=== PATIENT | male | born 1970 | race Caucasian/White ===

== ENCOUNTER 2019-03-07 21:35 | Observation (INO) | payer OTHER, SELFPAY ==
[2019-03-07 21:36] VITALS: BP 154/98; PULSE 75; RESP 20; TEMP 36.7; O2SAT 98; BMI 27.1
--- NOTE | 2019-03-07 21:41 | XR_ITS ---
XR chest 2V HISTORY: Chest pain ITS.REASON: CP ORDERING PHYSICIAN: Jose Felton MD PATIENT AGE: 48 years COMPARISON: None FINDINGS: The cardiomediastinal silhouette and pulmonary vascularity are within normal limits. The lungs are clear without infiltrates, suspicious nodules, or pleural effusions. No acute bony abnormalities. IMPRESSION: Negative chest, no acute finding
[2019-03-07 22:05] LABS: Basophils % 0.5 % (0.1-2.0); Eosinophils # 0.2 K/mm3 (0.0-0.4); Eosinophils % 2.7 % (0.1-12.0); Hematocrit 43.9 % (42.0-52.0); Hemoglobin 15.3 g/dL (14.1-18.0); Lymphocytes # 2.9 K/mm3 (0.7-4.5); Lymphocytes % 47.6 % (10-50); Mean Corpuscular HGB Conc 34.9 g/dL (31.8-35.4); Mean Corpuscular Hemoglobin 29.5 pg (27.0-31.2); Mean Corpuscular Volume 84.7 fl (80-94); Mean Platelet Volume 7.1 fl (7.4-10.4); Monocytes # 0.3 K/mm3 (0.1-1.0); Monocytes % 5.7 % (1.7-9.3); Neutrophils # 2.6 K/mm3 (1.8-7.8); Neutrophils % 43.5 % (37.0-80.0); Platelet Count 221 K/mm3 (142-424); Red Blood Count 5.18 M/mm3 (4.60-6.20); Red Cell Distribution Width 13.3 % (11.5-17.5)
--- NOTE | 2019-03-07 22:08 | PC.NURSE ---
Pt states he is having no pain at this time
--- NOTE | 2019-03-07 22:17 | HMH.EDCP ---
ED Disposition Clinical Impression: Unstable angina pectoris, LBBB (left bundle branch block) Disposition: Admitted as Observation Condition on Discharge: Good Referrals: Provider,Referral, [Primary Care Provider] - - Critical Care Critical Care Time: No Attestation: On 03/07/19, the high probability of a clinically significant, sudden or life threatening deterioration of the following system(s) required my full and direct attention, intervention and personal management. The time I documented below is in addition to time spent performing reported procedures but includes the following listed in this critical care notation. Medical Decision Making - Medical Records Medical records reviewed: Yes: I reviewed the patient's medical records. - Ehsan Inquiry Pt receiving controlled substance: No Vital Signs: 03/07/19 21:36 Temperature 98.1 F Temperature Source Oral Pulse Rate [Right] 75 Respiratory Rate 20 Blood Pressure [Right Arm] 154/98 H Blood Pressure Mean [Right Arm] 116 02 Sat by Pulse Oximetry 98 - Lab Data Lab results reviewed: Yes: I reviewed the patient's lab results. Lab Results 03/07/19 21:55: WBC 6.0, RBC 5.18, Hgb 15.3, Hct 43.9, MCV 84.7, MCH 29.5, MCHC 34.9, RDW 13.3, Plt Count 221, MPV 7.1 L, Neut % (Auto) 43.5, Lymph % (Auto) 47.6, [place] % (Auto) 5.7, Eos % (Auto) 2.7, Baso % (Auto) 0.5, Neut # (Auto) 2.6, Lymph # (Auto) 2.9, [place] # (Auto) 0.3, Eos # (Auto) 0.2, Baso # (Auto) 0.0 03/07/19 21:55: Sodium 142, Potassium 4.0, Chloride 107, Carbon Dioxide 24, Anion Gap 15.0, BUN 25 H, Creatinine 1.10, Estimated Creat Clear 103, Estimated GFR 71, Est GFR ( Amer) 86, Glucose 99, Calcium 8.8, Troponin I < 0.02 Result diagrams: 03/07/19 21:55 03/07/19 21:55 Orders (Tests/Meds): ED MEDICATIONS Generic Name Dose Route Start Last Admin Trade Name Freq PRN Reason Stop Dose Admin Sodium Chloride 1,000 mls @ 999 mls/hr 03/07/19 21:45 03/07/19 22:00 Sod Chlor 0.9% 1000ml Bag IV 03/07/19 22:45 999 mls/hr .Q1H1M AIDA Administration Discontinued Medications Generic Name Dose Route Start Last Admin Trade Name Kishan PRN Reason Stop Dose Admin Aspirin 324 mg 03/07/19 21:41 03/07/19 21:59 Aspirin 81mg Chewable Tablet PO 03/07/19 21:42 324 mg ONCE ONE Administration Morphine Sulfate 2 mg 03/07/19 22:36 Morphine 2mg/Ml Syringe IV 03/07/19 22:37 ONCE ONE Nitroglycerin 1 gm 03/07/19 21:41 03/07/19 22:00 Nitroglycerin 1 Inch Oint Udp TD 03/07/19 21:42 1 gm ONCE ONE Administration ORDERS Category Date Time Status XR chest 2V Stat Exams 03/07/19 21:41 Taken 12-lead EKG Request [ECG Request by /Dilan] Stat Y 03/07/19 21:41 Ordered - Radiology Data #1 Image(s): Chest Image Reviewed: Yes I reviewed the patient's radiology image Preliminary Findings: Normal/NAD - ECG Data Tracing #1 Normal Sinus Rhythm: Yes Conduction abnormalities present: LBBB - Physician Consults Physician Consulted: trisha Reason -: Pt condition Chest Pain HPI - General Chief Complaint: Chest Pain Stated Complaint: Chest pain Time Seen by Provider: 03/07/19 21:40 Mode of Arrival: Ambulatory Source of Information: Patient, Spouse, Medical Record Limitations: No Limitations Description of Symptoms (Recalled from ER Triage Doc. by RN): Pt sent here by trisha to be evaluated for CP. Pt states he is having pain in his chest radiating to his neck and back. - History of Present Illness HPI narrative: pt with chest pain which has been recurrent since tuesday - seen at another hospital and had overnight admit and then d/c - has persistant pain at rest - no known heart disease but has lbbb- MD complaint: chest pain indicative of cardiac Onset (ago): day(s) Duration: intermittent Activity at onset: during rest Pain location: left chest Severity: moderate Quality: tightness Pain radiation: neck Relieving factors: nitroglycerin Treatments prior
[2019-03-07 22:22] LABS: Blood Urea Nitrogen 25 mg/dL (7-18); Calcium 8.8 mg/dL (8.5-10.1); Carbon Dioxide 24 mmol/L (21.0-32.0); Chloride 107 mmol/L (98-107); Creatinine Clearance Estimated 103 mL/min (50-200); Estimated Glomerular Filt Rate 71 ml/min (>60); GFR (African American) 86 ML/MIN (>60); Glucose 99 mg/dL (74-106); Sodium 142 mmol/L (136-145); Troponin I < 0.02 ng/ml (0.00-0.06)
--- NOTE | 2019-03-07 22:40 | PC.NURSE ---
Pt states he is having a 2/10 pain in his chest, MD notified
[2019-03-07 22:51] VITALS: BP 158/53; PULSE 64; RESP 20; O2SAT 94
[2019-03-07 22:52] VITALS: BP 140/80; PULSE 62; RESP 20; TEMP 37; O2SAT 98
--- NOTE | 2019-03-07 22:53 | PC.NURSE ---
Addendum entered by Graciela Chamorro RN 03/07/19 22:53: After administration of morphine Original Note: Pt states he is having 0/10 pain at this time
[2019-03-07 22:55] VITALS: BP 137/83; PULSE 68; RESP 22; TEMP 36.9; O2SAT 99; BMI 25.7
--- NOTE | 2019-03-07 23:02 | PC.NURSE ---
LATE ENTRY; @ [id number] ARRIVED TO FLOOR, PER W/C, FROM ED
[2019-03-07 23:58] VITALS: PULSE 59
[2019-03-08] VITALS (14 sets, daily range): BP systolic 102–122; BP diastolic 57–77; PULSE 54–67; RESP 16–18; TEMP 36.6–36.7; O2SAT 96–99; BMI 25.6
--- NOTE | 2019-03-08 | IR_ITS ---
CARDIAC CATHETERIZATION DATE OF CATHETERIZATION:03/08/2019 12:08 PM PROCEDURES: 1. Left heart catheterization 2. Left ventriculogram 3. Selective coronary angiogram INDICATION FOR TEST: 1. Unstable angina 2. Left bundle-branch block Informed consent was obtained prior to the procedure. COMPLICATIONS: None ESTIMATED BLOOD LOSS: Less than 10 ml. TECHNIQUE: One percent lidocaine used to anesthetize the right anterior aspect of the wrist. The right radial artery was accessed via the Seldinger technique. A 6 Wolof sheath was placed in the right radial artery. 2.5 mg of verapamil, 800 mcg of nitroglycerin, 1mg Lidocaine and 5000 U Heparin were given through the arterial sheath. The trap catheter was also used to perform left heart catheterization, left ventriculogram and selective coronary angiogram. At the end of the procedure the sheath was removed good hemostasis was achieved using Traclet band, patient was transferred to the postop holding area in stable condition . ANGIOGRAPHIC RESULTS: 1. The left main artery normal 2. The left anterior descending artery normal 3. The circumflex artery dominant normal 4. The right coronary artery nondominant normal 5. The MYERS ventriculogram reveals normal 65% 6. The left ventricular end-diastolic pressure 10 to 15 mmHg IMPRESSION: 1. Normal coronary arteries 2. Normal ejection fraction 3. Normal to mildly elevated LVEDP PLAN: 1. Evaluation noncardiac chest pain
[2019-03-08 01:44] LABS: Troponin I < 0.02 ng/ml (0.00-0.06)
--- NOTE | 2019-03-08 05:21 | PC.NURSE ---
PT NEW ADMIT THIS SHIFT. NPO FOR KEVIN CONSULT THIS AM. COMPLAINTS OF H/A THIS AM, GIVEN TYLENOL. HAS REMAINED AT [facility]. NO COMPLAINTS OF CP. NSR ON TELEMETRY.
[2019-03-08 05:45] LABS: Basophils % 0.5 % (0.1-2.0); Eosinophils # 0.1 K/mm3 (0.0-0.4); Eosinophils % 2.8 % (0.1-12.0); Hematocrit 40.3 % (42.0-52.0); Lymphocytes % 46.5 % (10-50); Mean Corpuscular Hemoglobin 28.9 pg (27.0-31.2); Mean Corpuscular Volume 84.9 fl (80-94); Mean Platelet Volume 7.2 fl (7.4-10.4); Monocytes # 0.3 K/mm3 (0.1-1.0); Monocytes % 7.6 % (1.7-9.3); Neutrophils # 1.8 K/mm3 (1.8-7.8); Neutrophils % 42.6 % (37.0-80.0); Platelet Count 171 K/mm3 (142-424); Red Blood Count 4.75 M/mm3 (4.60-6.20); Red Cell Distribution Width 13.2 % (11.5-17.5); White Blood Count 4.2 K/mm3 (4.8-10.8)
[2019-03-08 05:48] LABS: Hemoglobin 13.8 g/dL (14.1-18.0)
[2019-03-08 05:50] LABS: Anion Gap 11.8 mEq/L (5-15); Blood Urea Nitrogen 23 mg/dL (7-18); Carbon Dioxide 26 mmol/L (21.0-32.0); Chloride 108 mmol/L (98-107); Chol/HDL Ratio 5.6 (1-3.5); Cholesterol 162 mg/dL (140-200); Creatinine Clearance Estimated 103 mL/min (50-200); Creatinine,Serum 1.04 mg/dL (0.70-1.30); Estimated Glomerular Filt Rate 76 ml/min (>60); GFR (African American) 91 ML/MIN (>60); Glucose 104 mg/dL (74-106); HDL Cholesterol 29 mg/dL (27-67); LDL Cholesterol 98 mg/dL (0-130); Potassium 3.8 mmoL/L (3.5-5.1); Sodium 142 mmol/L (136-145); Triglycerides 177 mg/dL (30-200); VLDL Cholesterol 35 mg/dL (0-40)
[2019-03-08 05:55] LABS: Troponin I < 0.02 ng/ml (0.00-0.06)
--- NOTE | 2019-03-08 06:04 | PC.NURSE ---
ALEXA FORTE, NOTIFIED OF DR. BROWN CONSULT
--- NOTE | 2019-03-08 07:23 | PC.NURSE ---
REPORT GIVEN TO Jovana EMERSON
--- NOTE | 2019-03-08 07:27 | HMH.PHAVTE ---
[facility] Pharmacy VTE Monitoring - Patient Demographics Admission date: 03/07/19 Report Date: 03/08/19 Time: 07:27 Allergies/Adverse Reactions: Patient Allergies No Known Allergies Allergy (Verified 03/07/19 21:40) Height: 1.83 m Weight: 85.757 kg Patient Problems: Current Active Problems (Updated 03/07/19 @ 22:44 by Jose Felton MD) Unstable angina pectoris (Acute) LBBB (left bundle branch block) (Acute) - VTE Risk Labs: VTE Related Lab Results Hgb 13.8 g/dL (14.1-18.0) L 03/08/19 04:50 Hct 40.3 % (42.0-52.0) L 03/08/19 04:50 Plt Count 171 K/mm3 (142-424) 03/08/19 04:50 BUN 23 mg/dL (7-18) H 03/08/19 04:50 Creatinine 1.04 mg/dL (0.70-1.30) 03/08/19 04:50 Estimated Creat Clear 103 mL/min (50-200) 03/08/19 04:50 Was VTE Risk Assessment Performed: Yes VTE Score: 0 VTE Risk Level: Very Low Risk - Prophylaxis VTE Prophylaxis Ordered?: Yes Types of VTE Prophylaxis: TEDS Knee High Location of Applied Device: Bilateral Lower Extremeties - VTE Diagnosis Confirmed Treatment or plan recommended: Continue Current Treatment
--- NOTE | 2019-03-08 08:00 | CA_ITS ---
PROCEDURE: 2-D M-mode and color Doppler study INDICATIONS FOR THE TEST: Chest pain X COPD Heart Murmur Tobacco Smoking Palpitations Fatigue Syncope Edema Hypertension Diabetes Mellitus Rheumatic Fever SOB PASCUAL Obesity Hyperlipidemia Family History HD Additional History ABN EKG PATIENT INFORMATION HEIGHT: 72 WEIGHT:200 GENDER: Male B/P:158/98 2-D/M-MODE INTERPRETATION: 2-D MEASUREMENTS OBSERVED VALUES IN CMS Right Ventricular Dimension (RVDd) 2.9 Interventricular Septum (Thickness)(IVsd) 1.1 Left Ventricular Internal Dimensions(LVIDd) 5.0 Left Ventricular Posterior Wall (Thickness)(LVPWd) .7 Aortic Root 2.8 Aortic Cusp Separation 1.9 Left Atrial Dimensions (LAD) 2.8 2D 1. Left atrium is normal size, left ventricle is normal size, there is no concentric left ventricular hypertrophy, visually estimated ejection fraction 50%, there is abnormal septal motion, endocardial surfaces are poorly visualized. 2. The right atrium is normal size, right ventricle is qualitatively mildly enlarged with normal contractility. 3. The aortic valve is minimally thickened and fibrosed. 4. The mitral and tricuspid valve leaflets are minimally thickened. 5. The pulmonic valve is poorly present. 6. There is trivial pericardial effusion noted. DOPPLER INTERROGATION: Doppler interrogation of the aortic, mitral and tricuspid valvular presence of mild mitral and tricuspid regurgitation, calculated right ventricular systolic pressure is 28 mmHg, diastolic parameters are within normal range. CONCLUSION: 1. Normal left ventricular size, visually estimated ejection fraction 50% with no regional wall motion abnormality, endocardial surfaces are poorly visualized. Diastolic parameters are within normal range. 2. Mildly enlarged right ventricle with normal contractility. 3. Mild mitral and tricuspid regurgitation, calculated right ventricular systolic pressure is 28 mmHg 4. Trivial pericardial effusion noted.
--- NOTE | 2019-03-08 08:43 | HMH.CNCARD ---
History of Present Illness Consult date: 03/08/19 Requesting physician: Jose Felton Consult reason: chest pain Chief complaint: chest pain Additional Medical History:: 1. History of knee and elbow surgery 2. Left bundle branch block by EKG, 02/2019 3. Hyperlipidemia History of present illness: 48-year-old white male with recurrent episodes of substernal chest pain radiating to the shoulder and left arm that resolves with sublingual nitroglycerin and Nitropaste. Patient recently admitted to [facility] in [facility] with normal troponins and evaluation by CT of the chest with subsequent discharge home for outpatient follow-up. Patient returned to work yesterday and had recurrent episodes of chest pain for which he contacted personal friend, Dr. Mcneal with recommendation for admission to [facility] and further evaluation. Patient had no chest pain overnight while on the Nitropaste. Unfortunately he has a tremendous headache from the Nitropaste and it was removed this morning. Troponins have returned normal overnight. He has left bundle branch block on EKG which precludes diagnostic interpretation. Patient denies hypertension, tobacco use or diabetes. His mother had bypass in her early 70s. He has recently been made aware of hyperlipidemia. He is not on any treatment. Patient relates about 2 to 3 months ago bilateral numbness in his toes for which he was given ibuprofen 800 mg 3 times daily for about 1 week. He denies any recent GERD symptoms. [facility] History Medical History: Denies:: Cancer, Diabetes Mellitus Type 1, Diabetes Mellitus Type 2, MRSA *Have you ever received a pneumonia vaccine?: No *Have you received a flu vaccine this season?: Yes Laterality Cases: Right: ACL Repair Other Surgeries: Yes: Other (ELBOW SURGERY) Amputation: No Fractures: No - *Social History Educational Level: Completed High School Smoking Status: Never smoker Alcohol Intake: never *Occupational Status:: employed Housing: house *Travel in the last 8 weeks: None - Psychiatric History Expresses thoughts of harming self/others: None Suicide Plan Description: No Plan Family Hx:: Coronary Artery Disease Meds Home Medications Medication Instructions Recorded Confirmed Type No Known Home Medications 03/07/19 03/07/19 History Allergies Allergy/AdvReac Type Severity Reaction Status Date / Time No Known Allergies Allergy Verified 03/07/19 21:40 Review of Systems - *Cardiovascular Reports chest pain, Denies shortness of breath - *Respiratory Denies cough, Denies shortness of breath - *Gastrointestinal Denies abdominal pain, Denies nausea, Denies vomiting - *Genitourinary Denies blood in urine - *Musculoskeletal Denies joint pain, Denies back pain - *Neurologic Denies seizure-like activity Exam Vital signs and Labs for Last 24 Hours: Temp Pulse Resp BP Pulse Ox 97.8 F 60 16 107/70 L 96 03/08/19 07:44 03/08/19 08:00 03/08/19 07:44 03/08/19 07:44 03/08/19 07:44 Laboratory Results - last 24 hr 03/07/19 21:55: WBC 6.0, RBC 5.18, Hgb 15.3, Hct 43.9, MCV 84.7, MCH 29.5, MCHC 34.9, RDW 13.3, Plt Count 221, MPV 7.1 L, Neut % (Auto) 43.5, Lymph % (Auto) 47.6, [place] % (Auto) 5.7, Eos % (Auto) 2.7, Baso % (Auto) 0.5, Neut # (Auto) 2.6, Lymph # (Auto) 2.9, [place] # (Auto) 0.3, Eos # (Auto) 0.2, Baso # (Auto) 0.0 03/07/19 21:55: Sodium 142, Potassium 4.0, Chloride 107, Carbon Dioxide 24, Anion Gap 15.0, BUN 25 H, Creatinine 1.10, Estimated Creat Clear 103, Estimated GFR 71, Est GFR ( Amer) 86, Glucose 99, Calcium 8.8, Troponin I < 0.02 03/08/19 01:10: Troponin I < 0.02 03/08/19 04:50: Troponin I < 0.02 03/08/19 04:50: WBC 4.2 L D, RBC 4.75, Hgb 13.8 L, Hct 40.3 L, MCV 84.9, MCH 28.9, MCHC 34.0, RDW 13.2, Plt Count 171, MPV 7.2 L, Neut % (Auto) 42.6, Lymph % (Auto) 46.5, [place] % (Auto) 7.6, Eos % (Auto) 2.8, Baso % (Auto) 0.5, Neut # (Auto) 1.8, Lymph # (Auto) 2
--- NOTE | 2019-03-08 08:47 | P.CONS_ITS ---
History of Present Illness Consult date: 03/08/19 Requesting physician: Jose Felton Consult reason: chest pain Chief complaint: chest pain Additional Medical History:: 1. History of knee and elbow surgery 2. Left bundle branch block by EKG, 02/2019 3. Hyperlipidemia History of present illness: 48-year-old white male with recurrent episodes of substernal chest pain radiating to the shoulder and left arm that resolves with sublingual nitroglycerin and Nitropaste. Patient recently admitted to [facility] in [facility] with normal troponins and evaluation by CT of the chest with subsequent discharge home for outpatient follow-up. Patient returned to work yesterday and had recurrent episodes of chest pain for which he contacted personal friend, Dr. Mcneal with recommendation for admission to [facility] and further evaluation. Patient had no chest pain overnight while on the Nitropaste. Unfortunately he has a tremendous headache from the Nitropaste and it was removed this morning. Troponins have returned normal overnight. He has left bundle branch block on EKG which precludes diagnostic interpretation. Patient denies hypertension, tobacco use or diabetes. His mother had bypass in her early 70s. He has recently been made aware of hyperlipidemia. He is not on any treatment. Patient relates about 2 to 3 months ago bilateral numbness in his toes for which he was given ibuprofen 800 mg 3 times daily for about 1 week. He denies any recent GERD symptoms. [facility] History Medical History: Denies:: Cancer, Diabetes Mellitus Type 1, Diabetes Mellitus Type 2, MRSA *Have you ever received a pneumonia vaccine?: No *Have you received a flu vaccine this season?: Yes Laterality Cases: Right: ACL Repair Other Surgeries: Yes: Other (ELBOW SURGERY) Amputation: No Fractures: No - *Social History Educational Level: Completed High School Smoking Status: Never smoker Alcohol Intake: never *Occupational Status:: employed Housing: house *Travel in the last 8 weeks: None - Psychiatric History Expresses thoughts of harming self/others: None Suicide Plan Description: No Plan Family Hx:: Coronary Artery Disease Meds Home Medications Medication Instructions Recorded Confirmed Type No Known Home Medications 03/07/19 03/07/19 History Allergies Allergy/AdvReac Type Severity Reaction Status Date / Time No Known Allergies Allergy Verified 03/07/19 21:40 Review of Systems - *Cardiovascular Reports chest pain, Denies shortness of breath - *Respiratory Denies cough, Denies shortness of breath - *Gastrointestinal Denies abdominal pain, Denies nausea, Denies vomiting - *Genitourinary Denies blood in urine - *Musculoskeletal Denies joint pain, Denies back pain - *Neurologic Denies seizure-like activity Exam Vital signs and Labs for Last 24 Hours: Temp Pulse Resp BP Pulse Ox 97.8 F 60 16 107/70 L 96 03/08/19 07:44 03/08/19 08:00 03/08/19 07:44 03/08/19 07:44 03/08/19 07:44 Laboratory Results - last 24 hr 03/07/19 21:55: WBC 6.0, RBC 5.18, Hgb 15.3, Hct 43.9, MCV 84.7, MCH 29.5, MCHC 34.9, RDW 13.3, Plt Count 221, MPV 7.1 L, Neut % (Auto) 43.5, Lymph % (Auto) 47.6, [place] % (Auto) 5.7, Eos % (Auto) 2.7, Baso % (Auto) 0.5, Neut # (Auto) 2.6, Lymph # (Auto) 2.9, [place] # (A
--- NOTE | 2019-03-08 09:23 | HMH.HP ---
*Admission Date: 03/07/19 *Chief complaint: chest pain *History of present illness: pt with new chest pain which began over the last few days - pt with admit at another hospital and was released and presented for ongoing chest pain with rad to neck and relieved with ntg - tory of knee and elbow surgery 2. Left bundle branch block by EKG, 02/2019 3. Hyperlipidemia History of present illness: 48-year-old white male with recurrent episodes of substernal chest pain radiating to the shoulder and left arm that resolves with sublingual nitroglycerin and Nitropaste. Patient recently admitted to [facility] in [facility] with normal troponins and evaluation by CT of the chest with subsequent discharge home for outpatient follow-up. Patient returned to work yesterday and had recurrent episodes of chest pain for which he contacted personal friend, Dr. Mcneal with recommendation for admission to [facility] and further evaluation. Patient had no chest pain overnight while on the Nitropaste. Unfortunately he has a tremendous headache from the Nitropaste and it was removed this morning. Troponins have returned normal overnight. He has left bundle branch block on EKG which precludes diagnostic interpretation. Patient denies hypertension, tobacco use or diabetes. His mother had bypass in her early 70s. He has recently been made aware of hyperlipidemia. He is not on any treatment. Patient relates about 2 to 3 months ago bilateral numbness in his toes for which he was given ibuprofen 800 mg 3 times daily for about 1 week. He denies any recent GERD symptoms. [facility] History I have reviewed the patient's past medical history: Yes Medical History: Denies:: Cancer, Diabetes Mellitus Type 1, Diabetes Mellitus Type 2, MRSA *Have you ever received a pneumonia vaccine?: No *Have you received a flu vaccine this season?: Yes Laterality Cases: Right: ACL Repair Other Surgeries: Yes: Other (ELBOW SURGERY) Amputation: No Fractures: No - *Social History Educational Level: Completed High School Smoking Status: Never smoker Alcohol Intake: never *Occupational Status:: employed Housing: house *Travel in the last 8 weeks: None - Psychiatric History Expresses thoughts of harming self/others: None Suicide Plan Description: No Plan Family Hx:: Coronary Artery Disease Review of Systems - Review of Systems Review of systems:: pertinent systems reviewed and negative unless documented below - Constitutional Denies fever(s) - Eyes Denies change in vision - ENT Denies sore throat - *Cardiovascular Reports chest pain, Reports radiating jaw, neck or arm pain - *Respiratory Denies cough - *Gastrointestinal Denies abdominal pain - *Musculoskeletal Denies joint pain - Integumentary/Breasts Denies rash - *Neurologic Denies seizure-like activity - Psychiatric Denies anxiety Meds Home Medications Medication Instructions Recorded Confirmed Type No Known Home Medications 03/07/19 03/07/19 History Allergies Allergy/AdvReac Type Severity Reaction Status Date / Time No Known Allergies Allergy Verified 03/07/19 21:40 Exam Vital signs and Labs for Last 24 Hours: Temp Pulse Resp BP Pulse Ox 97.8 F 60 16 107/70 L 96 03/08/19 07:44 03/08/19 08:00 03/08/19 07:44 03/08/19 07:44 03/08/19 07:44 Laboratory Results - last 24 hr 03/07/19 21:55: WBC 6.0, RBC 5.18, Hgb 15.3, Hct 43.9, MCV 84.7, MCH 29.5, MCHC 34.9, RDW 13.3, Plt Count 221, MPV 7.1 L, Neut % (Auto) 43.5, Lymph % (Auto) 47.6, [place] % (Auto) 5.7, Eos % (Auto) 2.7, Baso % (Auto) 0.5, Neut # (Auto) 2.6, Lymph # (Auto) 2.9, [place] # (Auto) 0.3, Eos # (Auto) 0.2, Baso # (Auto) 0.0 03/07/19 21:55: Sodium 142, Potassium 4.0, Chloride 107, Carbon Dioxide 24, Anion Gap 15.0, BUN 25 H, Creatinine 1.10, Estimated Creat Clear 103, Estimated GFR 71, Est GFR ( Amer) 86, Glucose 99, Calcium 8.8, Troponin I < 0.02 03/08/19 01:1
--- NOTE | 2019-03-08 09:27 | P.HP_ITS ---
*Admission Date: 03/07/19 *Chief complaint: chest pain *History of present illness: pt with new chest pain which began over the last few days - pt with admit at another hospital and was released and presented for ongoing chest pain with rad to neck and relieved with ntg - tory of knee and elbow surgery 2. Left bundle branch block by EKG, 02/2019 3. Hyperlipidemia History of present illness: 48-year-old white male with recurrent episodes of substernal chest pain radiating to the shoulder and left arm that resolves with sublingual nitroglycerin and Nitropaste. Patient recently admitted to [facility] in [facility] with normal troponins and evaluation by CT of the chest with subsequent discharge home for outpatient follow-up. Patient returned to work yesterday and had recurrent episodes of chest pain for which he contacted personal friend, Dr. Mcneal with recommendation for admission to [facility] and further evaluation. Patient had no chest pain overnight while on the Nitropaste. Unfortunately he has a tremendous headache from the Nitropaste and it was removed this morning. Troponins have returned normal overnight. He has left bundle branch block on EKG which precludes diagnostic interpretation. Patient denies hypertension, tobacco use or diabetes. His mother had bypass in her early 70s. He has recently been made aware of hyperlipidemia. He is not on any treatment. Patient relates about 2 to 3 months ago bilateral numbness in his toes for which he was given ibuprofen 800 mg 3 times daily for about 1 week. He denies any recent GERD symptoms. [facility] History I have reviewed the patient's past medical history: Yes Medical History: Denies:: Cancer, Diabetes Mellitus Type 1, Diabetes Mellitus Type 2, MRSA *Have you ever received a pneumonia vaccine?: No *Have you received a flu vaccine this season?: Yes Laterality Cases: Right: ACL Repair Other Surgeries: Yes: Other (ELBOW SURGERY) Amputation: No Fractures: No - *Social History Educational Level: Completed High School Smoking Status: Never smoker Alcohol Intake: never *Occupational Status:: employed Housing: house *Travel in the last 8 weeks: None - Psychiatric History Expresses thoughts of harming self/others: None Suicide Plan Description: No Plan Family Hx:: Coronary Artery Disease Review of Systems - Review of Systems Review of systems:: pertinent systems reviewed and negative unless documented below - Constitutional Denies fever(s) - Eyes Denies change in vision - ENT Denies sore throat - *Cardiovascular Reports chest pain, Reports radiating jaw, neck or arm pain - *Respiratory Denies cough - *Gastrointestinal Denies abdominal pain - *Musculoskeletal Denies joint pain - Integumentary/Breasts Denies rash - *Neurologic Denies seizure-like activity - Psychiatric Denies anxiety Meds Home Medications Medication Instructions Recorded Confirmed Type No Known Home Medications 03/07/19 03/07/19 History Allergies Allergy/AdvReac Type Severity Reaction Status Date / Time No Known Allergies Allergy Verified 03/07/19 21:40 Exam Vital signs and Labs for Last 24 Hours: Temp Pulse Resp BP Pulse Ox 97.8 F 60 16 107/70 L 96 03/08/19 07:44 03/08/19 08:00 03/08/19 07:44 03/08/19
--- NOTE | 2019-03-08 10:54 | PC.NURSE ---
CA Round done at 1000. family at bedside, trash taken out.
--- NOTE | 2019-03-08 11:35 | PC.NURSE ---
Patient off floor for heart cath.
== END 2019-03-08 17:08 | disposition home or self-care (01) ==
LOC: ER 22:17 → 2ND 22:43 → ER 23:19
PROVIDERS: Internal Medicine; Admitting Provider Emergency Medicine; Emergency Provider Emergency Medicine; Visit Provider Emergency Medicine
DX: I20.0 Unstable angina (principal); E78.5 Hyperlipidemia, unspecified; I44.7 Left bundle-branch block, unspecified; R07.9 Chest pain, unspecified; Z82.49 Family history of ischemic heart disease and other diseases of the circulatory system; Z87.39 Personal history of other diseases of the musculoskeletal system and connective tissue
CPT/HCPCS: 36415; 71046; 80048; 80061; 84484; 85025; 93005; 93306; 93458; 96365; 96375; 99152; 99284; C1725; C1769; G0378; J1644; J2405; Q9967